=== PATIENT | female | born 1990 | race Caucasian/White ===

== ENCOUNTER 2020-04-03 14:52 | Inpatient (IN) | payer MEDICAID ==
[2020-04-03] MEDS ORDERED: RINGERS SOLUTION,LACTATED 1,000 ML IV PRN (15:03)
--- NOTE | 2020-04-03 15:49 | Admission Physical ---
Datetime Report Generated by CPN: 04/03/2020 15:49 CURRENT ADMISSION Chief Complaint: Uterine Contractions Indication for Induction: Not Applicable Admit Impression : Term, Intrauterine ; Active Labor Admit Plan: Admit to Unit; Initiate Labor Protocol ALLERGIES Medication Allergies: No Medication Allergies: No Known Allergies (04/03/2020) Latex: No Latex Allergies OBSTETRICAL HISTORY EDC: 03/30/2020 00:00 : 2 Para: 1 Gestational Diabetes: No Rh Sensitization: No Incompetent Cervix: No ODALYS: No Infertility: No ART Treatment: No Uterine Anomaly: No IUGR: No Hx Previous C/S: No Macrosomia: No Hx Loss/Stillborn: No PIH: No Hx : No Placenta Previa/Abruption: No Depression/PP Depression: No PTL/PROM: No Post Hemorrhage: No Current Procedures: Ultrasound Obstetrical History Comments: 02/27/2018, 40+2, Vaginal Male G2-Current SEE RECORDS Alcohol: No Marijuana : No Cocaine: No Other Illicit Drugs: No Cigarettes: Never Smoker. [id number] MEDICAL HISTORY Diabetes: No Blood Transfusion: No Pulmonary Disease (Asthma, TB): No Breast Disease: No Hypertension: No Configuration Manager Surgery: No Heart Disease: No Hosp/Surgery: Yes Autoimmune Disorder: No Anesthetic Complications: No Kidney Disease: No Abnormal Pap Smear: No Neuro/Epilepsy: No Psychiatric Disorders: No Other Medical Diseases: No Hepatitis/Liver Disease: No Significant Family History: No Varicosities/Phlebitis: No Trauma/Violence : No Thyroid Dysfunction: No Medical History Comments: Cyst removal from vagina 07/2019 INFECTIOUS HISTORY Gonorrhea: No Genital Herpes: No Chlamydia: Yes Tuberculosis: No Syphilis: No Hepatitis: No HIV/AIDS Exposure: No Rash or Viral Illness: No HPV: No Infectious History Comments: Chlamydia-early in , [facility] PHYSICAL EXAM General: Normal HEENT: Normal Neurologic: Normal Thyroid: Deferred Heart: Normal Lungs: Normal Breast: Deferred Back: Normal Abdomen: Normal Genitourinary Exam: Normal Extremities: Normal DTRs: Deferred Pelvic Type: Adequate Physical Exam Comments: pelvis proven to 7# Vital Signs: Reviewed VAGINAL EXAM Dilatation: 4 Effacement: 85 Station: -1 Contraction Comments: Q3 mins MEMBRANES Pooling: Negative Membranes: Intact FETUS A EGA: 40.4 Monitoring: External US FHR- Baseline: 150 Accelerations: 15X15 Decelerations: None Estimated Weight (gm): 3600 Presentation: Vertex Admit Comment: at 40w4d with contractions Q3 mins. sent from office for 4cm dilation for direct admit. P: admit, epidural per pt request, anticipate PLANS FOR LABOR AND DELIVERY Labor and Delivery: None Pain Management: Epidural Feeding Preference: Breast Circumcision: Yes INFORMED CONSENT Assignment: Basil Uribe MD Signature: with User ID: Gustavo : with User ID: [email or web address]
[2020-04-03 16:14] LABS: ABSOLUTE LYMPHOCYTES (AUTO) 1.3 10^3/uL (0.5-4.7); ABSOLUTE MONOCYTES (AUTO) 0.5 10^3/uL (0.1-1.4); ABSOLUTE NEUT (AUTO) 6.9 10^3/uL (1.7-8.2); BASOPHILS % (AUTO) 0.2 % (0-2); EOSINOPHILS % (AUTO) 0.2 % (0-6); HEMATOCRIT 40.5 % (36.0-47.0); HEMOGLOBIN 14.1 g/dL (12.0-15.5); LYMPHOCYTES % (AUTO) 15.1 % (13-45); MEAN CORPUSCULAR HEMOGLOBIN 31.8 pg (27.0-33.4); MEAN CORPUSCULAR HGB CONC 34.9 g/dL (32.0-36.0); MEAN CORPUSCULAR VOLUME 91 fl (80-97); MONOCYTES % (AUTO) 5.6 % (3-13); PLATELET COUNT 199 10^3/uL (150-450); RED BLOOD COUNT 4.44 10^6/uL (3.72-5.28); RED CELL DISTRIBUTION WIDTH 14.2 % (11.5-14.0); SEGMENTED NEUTROPHILS % (AUTO) 78.9 % (42-78); TOTAL CELLS COUNTED % (AUTO) 100 %; WHITE BLOOD COUNT 8.8 10^3/uL (4.0-10.5)
[2020-04-03] MEDS ORDERED: OXYTOCIN/0.9 % SODIUM CHLORIDE 30 UNIT/500 ML RTUINJ ONE (16:36)
[2020-04-03] MEDS ORDERED: LIDOCAINE 1% INJ-PF (10 MG/ML) 30 ML SDV ONE (16:36)
[2020-04-03] MEDS ORDERED: OXYTOCIN 10 UNIT/ML VIAL ONE (16:36)
[2020-04-03] MEDS ORDERED: MISOPROSTOL 0.2 MG TABLET ONE (16:36)
[2020-04-03] MEDS ORDERED: PROMETHAZINE HCL INJ 25 MG/1 ML VIAL IV PRN (17:11)
[2020-04-03] MEDS ORDERED: ZOLPIDEM TARTRATE 5 MG TABLET PO PRN (17:11)
[2020-04-03] MEDS ORDERED: DIBUCAINE 1% OINTMENT 28 GM TP PRN (17:11)
[2020-04-03] MEDS ORDERED: ACETAMINOPHEN 650 MG SUPP.RECT PR PRN (17:11)
[2020-04-03] MEDS ORDERED: OXYTOCIN/0.9 % SODIUM CHLORIDE 30 UNIT/500 ML RTUINJ IV PRN (17:11)
[2020-04-03] MEDS ORDERED: MAGNESIUM HYDROXIDE SUSP 30 ML UDCUP PO PRN (17:11)
[2020-04-03] MEDS ORDERED: DIPH/PERTUSS(ACELL)/TETANUS VAC/PF 0.5 ML SYR (>=10YO) IM PRN (17:11)
[2020-04-03] MEDS ORDERED: ACETAMINOPHEN WITH CODEINE #3 TABLET PO PRN ×2 (17:11)
[2020-04-03] MEDS ORDERED: NA PHOS,M-B/NA PHOS,DI-BA (ADULT) 133 ML ENEMA PR PRN (17:11)
[2020-04-03] MEDS ORDERED: MEASLES,MUMPS&RUBELLA VACC/PF 0.5 ML VIAL SUBCUT PRN (17:11)
[2020-04-03] MEDS ORDERED: BENZOCAINE/MENTHOL AEROSOL SPRAY 56 ML TOP PRN (17:11)
[2020-04-03] MEDS ORDERED: PROMETHAZINE HCL 25 MG TABLET PO PRN (17:11)
[2020-04-03] MEDS ORDERED: PROMETHAZINE HCL 25 MG SUPP.RECT PR PRN (17:11)
[2020-04-03] MEDS ORDERED: PSEUDOEPHEDRINE HCL 30 MG TABLET PO PRN (17:11)
[2020-04-03] MEDS ORDERED: GLYCERIN/WITCH HAZEL LEAF 1 EACH MED..WIPE TP PRN (17:11)
[2020-04-03] MEDS ORDERED: DIPHENHYDRAMINE HCL 25 MG CAPSULE PO PRN (17:11)
[2020-04-03] MEDS ORDERED: BENZOCAINE/MENTHOL AEROSOL SPRAY 56 ML ONE (17:55)
[2020-04-03] MEDS ORDERED: IBUPROFEN 800 MG TABLET ONE (17:55)
[2020-04-03] MEDS: IBUPROFEN 800 MG TABLET PO SCH (18:01)
[2020-04-03 18:24] LABS: URINE AMPHETAMINES SCREEN NEGATIVE; URINE BARBITURATES SCREEN NEGATIVE; URINE BENZODIAZEPINES SCREEN NEGATIVE; URINE COCAINE SCREEN NEGATIVE; URINE MARIJUANA (THC) SCREEN NEGATIVE; URINE METHADONE SCREEN NEGATIVE; URINE PHENCYCLIDINE SCREEN NEGATIVE
[2020-04-03 23:20] LABS: APPEARANCE,URINE TURBID; BILIRUBIN,URINE NEGATIVE (NEGATIVE); COLOR,URINE YELLOW; GLUCOSE, URINE NEGATIVE (NEGATIVE); KETONES,URINE NEGATIVE (NEGATIVE); LEUKOCYTE ESTERASE,URINE NEGATIVE (NEGATIVE); NITRITE,URINE NEGATIVE (NEGATIVE); PROTEIN,URINE 30 mg/dL (NEGATIVE); UROBILINOGEN,URINE NEGATIVE mg/dL (<2.0)
[2020-04-03] MEDS: FAMOTIDINE 20 MG TABLET PO SCH (23:52)
[2020-04-04] MEDS: IBUPROFEN 800 MG TABLET PO SCH ×3 (02:53→17:38)
--- NOTE | 2020-04-04 09:58 | PDOC PROGRESS REPORT ---
Subjective-OB Progress Note for:: 04/04/20 Subjective: Pt doing well, no concerns. She reports light bleeding, reg diet and voiding without difficulty. Physical Exam (OB) Vital Signs: Temp Pulse Resp BP Pulse Ox 98.2 F 83 16 120/70 98 04/04/20 07:49 04/04/20 07:49 04/04/20 07:49 04/04/20 07:49 04/04/20 07:49 Intake & Output 04/03/20 04/04/20 04/05/20 06:59 06:59 06:59 Output Total 375 Balance -375 Weight 92.5 kg - Lochia Lochia Amount: Scant < 10 ml Lochia Color: Rubra/Red - Abdomen Description: Soft Hernia Present: No Fundal Description: Firm, Midline Fundal Height: u/u - u/2 Objective-Diagnostic Laboratory: 04/03/20 15:23 04/03/20 04/03/20 04/03/20 15:13 15:23 15:23 WBC 8.8 RBC 4.44 Hgb 14.1 Hct 40.5 MCV 91 MCH 31.8 MCHC 34.9 RDW 14.2 H Plt Count 199 Seg Neutrophils % 78.9 H Urine Color YELLOW Urine Appearance TURBID Urine pH 5.0 Ur Specific [place] 1.020 Urine Protein 30 H Urine Glucose (UA) NEGATIVE Urine Ketones NEGATIVE Urine Blood NEGATIVE Urine Nitrite NEGATIVE Ur Leukocyte Esterase NEGATIVE Blood Type AB POSITIVE Antibody Screen NEGATIVE Assessment and Plan(PN) - Assessment and Plan (1) Vaginal delivery Is this a current diagnosis for this admission?: Yes - Time Spent with Patient Time with patient: Less than 15 minutes Medications reviewed and adjusted accordingly: Yes - Disposition Anticipated Discharge: Home Within: within 24 hours
[2020-04-04] MEDS ORDERED: SENNOSIDES/DOCUSATE 8.6-50 MG 1 EACH TABLET PO SCH (10:00)
[2020-04-04] MEDS ORDERED: PRENATAL VITAMIN W DHA CAPSULE PO SCH (10:00)
[2020-04-04] MEDS: FAMOTIDINE 20 MG TABLET PO SCH ×2 (10:08→21:01)
[2020-04-04] MEDS: FERROUS SULFATE 325 MG TABLET PO SCH ×3 (10:08→17:38)
[2020-04-04] MEDS: DOCUSATE SODIUM 100 MG CAPSULE PO SCH ×3 (10:08→17:38)
[2020-04-04 10:44] LABS: HEMOGLOBIN 12.4 g/dL (12.0-15.5); MEAN CORPUSCULAR HEMOGLOBIN 31.3 pg (27.0-33.4); MEAN CORPUSCULAR HGB CONC 34.4 g/dL (32.0-36.0); MEAN CORPUSCULAR VOLUME 91 fl (80-97); PLATELET COUNT 169 10^3/uL (150-450); RED BLOOD COUNT 3.96 10^6/uL (3.72-5.28); RED CELL DISTRIBUTION WIDTH 13.7 % (11.5-14.0); WHITE BLOOD COUNT 9.5 10^3/uL (4.0-10.5)
[2020-04-04 19:45] VITALS: BP 124/76
--- NOTE | 2020-04-04 19:55 | PDOC DISCHARGE SUMMARY ---
Impression - Admit/DC Date/PCP Admission Date/Primary Care Provider: 04/03/20 14:52 Discharge Date: 04/04/20 - Discharge Diagnosis (1) Vaginal delivery Is this a current diagnosis for this admission?: Yes - Additional Information Resuscitation Status: Full Code - Stable after . Hemoglobin normal . Pain well managed. Vaginal bleeding as expected. Follow up with WATER MANAGER provider in 4 weeks Discharge Diet: As Tolerated Discharge Activity: Activity As Tolerated, No Lifting Over 10 Pounds, Pelvic Rest, Walk Frequently Prescriptions: Ibuprofen [Ibu] 800 mg PO Q8 10 Days #30 tablet Ibuprofen [Motrin 800 mg Tablet] 800 mg PO Q8A 10 Days #30 tablet Home Medications: Benzocaine/Menthol [Dermoplast Aerosol [place] 56 ml] 1 applic TOP PRN PRN can 04/04/20 Dibucaine 1% Ointment [Nupercainal 1% Oint 28 gm] 1 applic TP PRN PRN tube 04/04/20 Ibuprofen [Ibu] 800 mg PO Q8 10 Days #30 tablet 04/04/20 Ibuprofen [Motrin 800 mg Tablet] 800 mg PO Q8A 10 Days #30 tablet 04/04/20 Vit/Dha [ Multi + Dha Capsule] 1 cap PO DAILY capsule 04/04/20 History of Present Illiness History of Present Illness: ANALI SPRINGER is a 30 year old female Physical Exam - Physical Exam Vital Signs: Temp Pulse Resp BP Pulse Ox 97.8 F 75 18 124/76 100 04/04/20 19:36 04/04/20 19:36 04/04/20 19:36 04/04/20 19:36 04/04/20 19:36 Intake & Output 04/03/20 04/04/20 04/05/20 06:59 06:59 06:59 Intake Total 680 Output Total 375 Balance -375 680 Weight 92.5 kg Results Laboratory Results: WBC 9.5 10^3/uL (4.0-10.5) 04/04/20 10:05 RBC 3.96 10^6/uL (3.72-5.28) 04/04/20 10:05 Hgb 12.4 g/dL (12.0-15.5) 04/04/20 10:05 Hct 36.0 % (36.0-47.0) 04/04/20 10:05 MCV 91 fl (80-97) 04/04/20 10:05 MCH 31.3 pg (27.0-33.4) 04/04/20 10:05 MCHC 34.4 g/dL (32.0-36.0) 04/04/20 10:05 RDW 13.7 % (11.5-14.0) 04/04/20 10:05 Plt Count 169 10^3/uL (150-450) 04/04/20 10:05 Lymph % (Auto) 15.1 % (13-45) 04/03/20 15:23 [place] % (Auto) 5.6 % (3-13) 04/03/20 15:23 Eos % (Auto) 0.2 % (0-6) 04/03/20 15:23 Baso % (Auto) 0.2 % (0-2) 04/03/20 15:23 Absolute Neuts (auto) 6.9 10^3/uL (1.7-8.2) 04/03/20 15:23 Absolute Lymphs (auto) 1.3 10^3/uL (0.5-4.7) 04/03/20 15:23 Absolute Monos (auto) 0.5 10^3/uL (0.1-1.4) 04/03/20 15:23 Absolute Eos (auto) 0.0 10^3/uL (0.0-0.6) 04/03/20 15:23 Absolute Basos (auto) 0.0 10^3/uL (0.0-0.2) 04/03/20 15:23 Seg Neutrophils % 78.9 % (42-78) H 04/03/20 15:23 Urine Color YELLOW 04/03/20 15:13 Urine Appearance TURBID 04/03/20 15:13 Urine pH 5.0 (5.0-9.0) 04/03/20 15:13 Ur Specific [place] 1.020 04/03/20 15:13 Urine Protein 30 mg/dL (NEGATIVE) H 04/03/20 15:13 Urine Glucose (UA) NEGATIVE mg/dL (NEGATIVE) 04/03/20 15:13 Urine Ketones NEGATIVE mg/dL (NEGATIVE) 04/03/20 15:13 Urine Blood NEGATIVE (NEGATIVE) 04/03/20 15:13 Urine Nitrite NEGATIVE (NEGATIVE) 04/03/20 15:13 Urine Bilirubin NEGATIVE (NEGATIVE) 04/03/20 15:13 Urine Urobilinogen NEGATIVE mg/dL (<2.0) 04/03/20 15:13 Ur Leukocyte Esterase NEGATIVE (NEGATIVE) 04/03/20 15:13 Urine Ascorbic Acid 40 (NEGATIVE) H 04/03/20 15:13 Urine Opiates Screen NEGATIVE 04/03/20 15:13 Urine Methadone Screen NEGATIVE 04/03/20 15:13 Ur Barbiturates Screen NEGATIVE 04/03/20 15:13 Ur Phencyclidine Scrn NEGATIVE 04/03/20 15:13 Ur Amphetamines Screen NEGATIVE 04/03/20 15:13 U Benzodiazepines Scrn NEGATIVE 04/03/20 15:13 Urine Cocaine Screen NEGATIVE 04/03/20 15:13 U Marijuana (THC) Screen NEGATIVE 04/03/20 15:13 RPR NONREACTIVE (NONREACTIVE) 04/03/20 15:23 Blood Type AB POSITIVE 04/03/20 15:23 Antibody Screen NEGATIVE 04/03/20 15:23 Stroke Is this a Stroke Patient?: No Acute Heart Failure - Is this a Heart Failure Patient?: No
--- NOTE | 2020-04-08 11:22 | Delivery Summary ---
Del Sum A-C Datetime Report Generated by CPN: 04/08/2020 11:22 DELIVERY PERSONNEL DELIVERY PERSONNEL: [id number] Delivery Doctor:: Shawanda Arambula CNM Labor and Delivery Nurse:: Rosalie Calderon RNlining feller blindstitch Nurse:: Ana Howe RN Nursery Nurse:: JARRED Yoder Tech/ICU NURSE: Luci Gaming CNA II MATERNAL INFORMATION Delivery Anesthesia: None Medications After Delivery: Pitocin Bolus-Please Comment Estimated Blood Loss (ml): 200 Maternal Complications: Precipitous Labor (<3hrs) Provider Comments: RACHEL VIABLE MALE WITH SPONTANEOUS CRY. CORD DOUBLE CLAMPED AND CUT BY FOB. SPONTANEOUS PLACENTA INTACT WITH 3VC. 2ND DEGREE POSTERIOR VAGINAL LACERATIONS NOT BLEEDING AND REAPPROXIMATES WHEN LEFT ALONE, NOT REPAIRED. MOTHER AND INFANT STABLE IN L_D#2 LABOR SUMMARY EDC: 03/30/2020 00:00 No. Babies in Womb: 1 Attempted: No Labor Anesthesia: None LABOR INFORMATION Reason for Induction: Not Applicable Onset of Labor: 04/03/2020 15:30 Complete Dilatation: 04/03/2020 16:45 Oxytocin: N/A Group B Beta Strep: Negative Antibiotics # of Doses: 0 Antibiotics Time of Last Dose: n/a Name of Antibiotic Given: n/a Steroids Given: None Reason Steroids Not Administered: Not Applicable MEMBRANES Membranes Rupture Method: Artificial Rupture of Membranes: 04/03/2020 16:30 Length of Rupture (hr): 0.40 Amniotic Fluid Color: Clear Amniotic Fluid Amount: Moderate Amniotic Fluid Odor: Normal STAGES OF LABOR Stage 1 hr: 1 Stage 1 min: 15 Stage 2 hr: 0 Stage 2 min: 9 Stage 3 hr: 0 Stage 3 min: 13 Total Time in Labor hr: 1 Total Time in Labor min: 37 VAGINAL DELIVERY Episiotomy: None Laceration #1: Vaginal Laceration Extension #1: Second Degree Laceration Repair: Not Applicable Sponge Count Correct: Yes Sharps Count Correct: Yes BABY A INFORMATION Infant Delivery Date/Time: 04/03/2020 16:54 Method of Delivery: Vaginal Method of Delivery: Vaginal Nurse Controlled Delivery: No Born in Route : No : N/A Forceps: N/A Vacuum Extraction: N/A Shoulder Dystocia : No PRESENTATION/POSITION BABY A Presentation: Cephalic Cephalic Presentation: Vertex Vertex Position: Right Occipital Anterior Breech Presentation: N/A PLACENTA INFORMATION BABY A Placenta Delivery Time : 04/03/2020 17:07 Placenta Method of Delivery: Spontaneous Placenta Status: Delivered SCORES BABY A Heart Rate 1 min: >100 bpm Resp Effort 1 min: Slow, Irregular Reflex Irritability 1 min: Cough or Sneeze or Pulls Away Muscle Tone 1 min: Active Motion Color 1 min: Blue/Pale Resuscitation Effort 1 min: Tactile Stimulation SCORE 1 MIN: 7 Heart Rate 5 min: >100 bpm Resp Effort 5 min: Good Cry Reflex Irritability 5 min: Cough or Sneeze or Pulls Away Muscle Tone 5 min: Active Motion Color 5 min: Body [place], Extremities Blue Resuscitation Effort 5 min: Tactile Stimulation SCORE 5 MIN: 9 INFANT INFORMATION BABY A Gestational Age at Delivery: 40.4 Gestational Status: Full Term- 39- 40.6 Weeks Outcome : Liveborn Infant Condition : Stable Infant Sex: Male Sex: Male IDENTIFICATION BABY A Infant Verification Date/Time: 04/03/2020 17:44 ID Band Number: [id number] Mother's Name Verified: Yes RN Verifying : R Yumiko RN Additional Verifying Personnel: Avinash Gaming CNAII WEIGHT/LENGTH BABY A Birthweight (gm): 3729 Weight (lb): 8 Weight (oz): 4 Length (in): 20.50 Infant Length (cm): 52.07 CORD INFORMATION BABY A No. Cord Vessels: 3 Nuchal Cord : N/A Cord Blood Taken: Yes-For Storage (Mom's Blood type +) Infant Suction: None ASSESSMENT BABY A Skin to Skin: Yes BABY B INFORMATION : N/A SIGNATURES Assignment: Basil Uribe MD Signature: with User ID: [email or web address] : with User ID: [email or web address] : I was personally available for consultation and serving as supervising physician for the MLP. : I was personally available for consultation and serving as supervising physician for the MLP.
--- NOTE | 2020-04-09 00:15 | Delivery Summary ---
Del Sum A-C Datetime Report Generated by CPN: 04/09/2020 00:14 DELIVERY PERSONNEL DELIVERY PERSONNEL: [id number] Delivery Doctor:: Shawanda Arambula CNM Labor and Delivery Nurse:: Rosalie Calderon RNlinen supply load builder Nurse:: Ana Howe RN Nursery Nurse:: JARRED Yoderub Tech/SECURITY SCREENER: Luci Gaming CNA II MATERNAL INFORMATION Delivery Anesthesia: None Medications After Delivery: Pitocin Bolus-Please Comment Estimated Blood Loss (ml): 200 Maternal Complications: Precipitous Labor (<3hrs) Provider Comments: RACHEL VIABLE MALE WITH SPONTANEOUS CRY. CORD DOUBLE CLAMPED AND CUT BY FOB. SPONTANEOUS PLACENTA INTACT WITH 3VC. 2ND DEGREE POSTERIOR VAGINAL LACERATIONS NOT BLEEDING AND REAPPROXIMATES WHEN LEFT ALONE, NOT REPAIRED. MOTHER AND INFANT STABLE IN L_D#2 LABOR SUMMARY EDC: 03/30/2020 00:00 No. Babies in Womb: 1 Attempted: No Labor Anesthesia: None LABOR INFORMATION Reason for Induction: Not Applicable Onset of Labor: 04/03/2020 15:30 Complete Dilatation: 04/03/2020 16:45 Oxytocin: N/A Group B Beta Strep: Negative Antibiotics # of Doses: 0 Antibiotics Time of Last Dose: n/a Name of Antibiotic Given: n/a Steroids Given: None Reason Steroids Not Administered: Not Applicable MEMBRANES Membranes Rupture Method: Artificial Rupture of Membranes: 04/03/2020 16:30 Length of Rupture (hr): 0.40 Amniotic Fluid Color: Clear Amniotic Fluid Amount: Moderate Amniotic Fluid Odor: Normal STAGES OF LABOR Stage 1 hr: 1 Stage 1 min: 15 Stage 2 hr: 0 Stage 2 min: 9 Stage 3 hr: 0 Stage 3 min: 13 Total Time in Labor hr: 1 Total Time in Labor min: 37 VAGINAL DELIVERY Episiotomy: None Laceration #1: Vaginal Laceration Extension #1: Second Degree Laceration Repair: Not Applicable Sponge Count Correct: Yes Sharps Count Correct: Yes BABY A INFORMATION Infant Delivery Date/Time: 04/03/2020 16:54 Method of Delivery: Vaginal Method of Delivery: Vaginal Nurse Controlled Delivery: No Born in Route : No : N/A Forceps: N/A Vacuum Extraction: N/A Shoulder Dystocia : No PRESENTATION/POSITION BABY A Presentation: Cephalic Cephalic Presentation: Vertex Vertex Position: Right Occipital Anterior Breech Presentation: N/A PLACENTA INFORMATION BABY A Placenta Delivery Time : 04/03/2020 17:07 Placenta Method of Delivery: Spontaneous Placenta Status: Delivered SCORES BABY A Heart Rate 1 min: >100 bpm Resp Effort 1 min: Slow, Irregular Reflex Irritability 1 min: Cough or Sneeze or Pulls Away Muscle Tone 1 min: Active Motion Color 1 min: Blue/Pale Resuscitation Effort 1 min: Tactile Stimulation SCORE 1 MIN: 7 Heart Rate 5 min: >100 bpm Resp Effort 5 min: Good Cry Reflex Irritability 5 min: Cough or Sneeze or Pulls Away Muscle Tone 5 min: Active Motion Color 5 min: Body [place], Extremities Blue Resuscitation Effort 5 min: Tactile Stimulation SCORE 5 MIN: 9 INFANT INFORMATION BABY A Gestational Age at Delivery: 40.4 Gestational Status: Full Term- 39- 40.6 Weeks Outcome : Liveborn Infant Condition : Stable Infant Sex: Male Sex: Male IDENTIFICATION BABY A Infant Verification Date/Time: 04/03/2020 17:44 ID Band Number: [id number] Mother's Name Verified: Yes RN Verifying : R Yumiko RN Additional Verifying Personnel: Avinash Gaming CNAII WEIGHT/LENGTH BABY A Birthweight (gm): 3729 Weight (lb): 8 Weight (oz): 4 Length (in): 20.50 Infant Length (cm): 52.07 CORD INFORMATION BABY A No. Cord Vessels: 3 Nuchal Cord : N/A Cord Blood Taken: Yes-For Storage (Mom's Blood type +) Infant Suction: None ASSESSMENT BABY A Skin to Skin: Yes BABY B INFORMATION : N/A SIGNATURES Assignment: Basil Uribe MD Signature: with User ID: [email or web address] : with User ID: [email or web address] : I was personally available for consultation and serving as supervising physician for the MLP. : I was personally available for consultation and serving as supervising physician for the MLP.
== END 2020-04-04 21:06 | disposition home or self-care (01) | DRG 807 ==
LOC: LR 14:52 → 2S 20:00
PROVIDERS: ADMIT Obstetrics & Gynecology; ATTEND Obstetrics & Gynecology
PROC: 10E0XZZ Delivery of Products of Conception, External Approach (ICD-10-PCS; principal; 2020-04-03)
PROC: 10907ZC Drainage of Amniotic Fluid, Therapeutic from Products of Conception, Via Natural or Artificial Opening (ICD-10-PCS; 2020-04-03)
DX: O48.0 Post-term pregnancy (principal); Z37.0 Single live birth; O62.3 Precipitate labor; O70.1 Second degree perineal laceration during delivery; Z3A.40 40 weeks gestation of pregnancy
CPT/HCPCS: 36415; 80307; 81005; 85025; 85027; 86592; 86850; 86900; 86901; J2590; J3490